=== PATIENT | female | born 1980 | race Caucasian/White ===

== ENCOUNTER 2017-03-26 09:06 | Emergency (ER) | payer SELFPAY ==
[2017-03-26 09:40] VITALS: BP 129/65
[2017-03-26 10:07] LABS: Basophils % (Auto) 0.5 % (0.0-1.8); Eosinophils % (Auto) 2.3 % (0.0-4.3); Hematocrit 37.1 % (30.3-42.9); Hemoglobin 12.4 gm/dl (10.1-14.3); Mean Corpuscular HGB Conc 34 % (30-34); Mean Corpuscular Hemoglobin 31 pg (28-32); Mean Corpuscular Volume 93 fl (79-97); Platelet Count 235 K/mm3 (140-440); Red Blood Count 3.99 M/mm3 (3.65-5.03); Red Cell Distribution Width 14.3 % (13.2-15.2); White Blood Count 7.2 K/mm3 (4.5-11.0)
[2017-03-26 10:14] LABS: Anion Gap 17 mmol/L; BUN/Creatinine Ratio 16.66; Blood Urea Nitrogen 10 mg/dL (7-17); Calcium 8.9 mg/dL (8.4-10.2); Carbon Dioxide 24 mmol/L (22-30); Chloride 103.1 mmol/L (98-107); Glucose 82 mg/dL (65-100); Potassium 3.7 mmol/L (3.6-5.0); Sodium 140 mmol/L (137-145)
[2017-03-26 10:27] LABS: Bilirubin,Urine NEG (Negative); Blood,Urine NEG (Negative); Ketones,Urine NEG (Negative); Leukocyte Esterase,Urine NEG (Negative); Mucus,Urine FEW /HPF; Nitrite,Urine NEG (Negative)
[2017-03-26] MEDS ORDERED: TYLENOL ONE (11:01)
--- NOTE | 2017-03-26 11:58 | Emergency Department Report ---
HPI - General Chief Complaint: Abdominal Pain Time Seen by Provider: 03/26/17 11:09 - [facility] HPI: Patient is a 37-year-old female presents to ED complaining of a minute area 1 month she has a complaint of lower pelvic cramping pain, intermittent type pain for the past 2 weeks. Patient also states bilateral breasts tenderness and feeling tired. Patient admits nausea but no vomiting and no appetite. He also needs frequency but no dysuria. She states last menstrual period was 2016. She denies Taking any medications or is allergic to any medications. She denies fevers/chills/vomiting/vaginal bleeding/vaginal discharge/ Vaginal itching/constipation or diarrhea/abdominal pain chest pain or shortness of breath. ED Past Medical Hx - Past Medical History Previous Medical History?: No - Surgical History Additional Surgical History: 2003 - Social History Smoking Status: Never Smoker Substance Use Type: Alcohol - Medications Home Medications: Home Medications Medication Instructions Recorded Confirmed Last Taken Type Doxylamine/Pyridoxine HCl 2 tab PO QHS #40 tablet. 03/26/17 Unknown Rx [Brett Garcia 10-10 mg Tablet] Pnv95/Ferrous Fumarate/FA 1 each PO DAILY #60 tablet 03/26/17 Unknown Rx [ Formula Tablet] ED Review of Systems ROS: Stated complaint: CRAMPS AND MISSED CYCLE Other details as noted in HPI Constitutional: denies: chills, fever Eyes: denies: eye pain, eye discharge, vision change ENT: denies: ear pain, throat pain Respiratory: denies: cough, shortness of breath, wheezing Cardiovascular: denies: chest pain, palpitations Endocrine: no symptoms reported Gastrointestinal: nausea. denies: abdominal pain, vomiting, diarrhea Genitourinary: frequency. denies: urgency, dysuria, hematuria, discharge, dyspareunia Musculoskeletal: denies: back pain, joint swelling, arthralgia Skin: denies: rash, lesions Neurological: denies: headache, weakness, numbness, paresthesias, confusion Psychiatric: denies: anxiety, depression Hematological/Lymphatic: denies: easy bleeding, easy bruising Physical Exam - Physical Exam Vital Signs: Vital Signs 03/26/17 09:36 Temperature 97.9 F Pulse Rate 79 Respiratory 15 Rate Blood Pressure 129/65 O2 Sat by Pulse 100 Oximetry Physical Exam: GENERAL: Alert and oriented x3, no apparent distress, Normal Gait, atraumatic. HEAD: Head is normocephalic and a-traumatic. EYES: Extra ocular muscles are intact. Pupils are equal, round, and reactive to light and accommodation. LUNGS: Symetrical with respiration, No wheezing, no rales or crackles, CTAB. HEART: S1, S2 present, regular rate and rhythm without murmur, no rubs, no gallops. ABDOMEN: No organomegaly was noted,Positive bowel sounds, soft, and non- distended. . Nontender to palpation on all Quadrants, NO CVA tenderness. BREAST: Symetrical, Supple bilaterally, No Masses, lumps, lesions, ulcerations. NEUROLOGIC: The patient is cooperative with no focal neurologic deficits. Cranial nerves II through XII are grossly intact. SKIN: Warm and dry, No lesions, No ulceration or induration present. ED Course Vital Signs 03/26/17 09:36 Temperature 97.9 F Pulse Rate 79 Respiratory 15 Rate Blood Pressure 129/65 O2 Sat by Pulse 100 Oximetry ED Medical Decision Making - Lab Data Result diagrams: 03/26/17 09:43 03/26/17 09:43 - Medical Decision Making 37-year-old female presents with confirmed positive test CBC, BMP was ordered. All normal limits. Urinalysis negative urine test positive hCG Quant [id number] Discussed positive test with patient discussed limits follow-up with [employer]. Discussed vitamins daily. Discussed increased water intake delete 8- 10 glasses per day. Discussed to take antinausea medications every night. Patient is alert and oriented 3 she understands instructions given Critical care attestation.: If time is entered above; I have spent that time in minutes in the direct care of this critically ill patient, excluding procedure time. ED Disposition Clinical Impression: Positive blood test Disposition: DISCHARGED TO HOME OR SELFCARE Is pt being admited?: No Does the pt Need Aspirin: No Condition: Stable Instructions: Morning Sickness (ED), (ED) Prescriptions: Doxylamine/Pyridoxine HCl [Brett Garcia 10-10 mg Tablet] 2 tab PO QHS #40 tablet. Pnv95/Ferrous Fumarate/FA [ Formula Tablet] 1 each PO DAILY #60 tablet Referrals: PRIMARY CAREMD [Primary Care Provider] - 3-5 Days SCOOBY CH MD [Referring] - 3-5 Days CANDICE DESIR MD [Referring] - 3-5 Days CAMACHO LOPEZ MD [Staff Physician] - 3-5 Days Forms: Accompanied Note, Work/School Release Form(ED) Time of Disposition: 13:04
== END 2017-03-26 13:22 | disposition home or self-care (01) ==
LOC: ED 09:06
DX: O26.899 Other specified pregnancy related conditions, unspecified trimester (principal); R10.2 Pelvic and perineal pain; N64.4 Mastodynia; R11.0 Nausea; Z3A.00 Weeks of gestation of pregnancy not specified
CPT/HCPCS: 36415; 80048; 81001; 84702; 84703; 85025; 99283

== ENCOUNTER 2017-06-16 08:17 | Emergency (ER) | payer MEDICAID ==
[2017-06-16 08:57] VITALS: BP 117/74
[2017-06-16 09:22] LABS: Basophils % (Auto) 0.3 % (0.0-1.8); Eosinophils % (Auto) 1.6 % (0.0-4.3); Hematocrit 36.4 % (30.3-42.9); Hemoglobin 12.4 gm/dl (10.1-14.3); Mean Corpuscular HGB Conc 34 % (30-34); Mean Corpuscular Hemoglobin 32 pg (28-32); Mean Corpuscular Volume 94 fl (79-97); Platelet Count 254 K/mm3 (140-440); Red Blood Count 3.89 M/mm3 (3.65-5.03); Red Cell Distribution Width 14.4 % (13.2-15.2); White Blood Count 10.4 K/mm3 (4.5-11.0)
[2017-06-16 11:15] LABS: Bacteria,Urine 1+ /HPF (Negative); Bilirubin,Urine NEG (Negative); Blood,Urine NEG (Negative); Ketones,Urine NEG (Negative); Leukocyte Esterase,Urine NEG (Negative); Mucus,Urine FEW /HPF; Nitrite,Urine NEG (Negative); Protein,Urine <15 mg/dL mg/dL (Negative)
--- NOTE | 2017-06-19 14:42 | ED Elopement Review ---
ED Pt Elopement review - Results review Lab results: Laboratory Tests 06/16/17 06/16/17 06/16/17 09:07 09:07 09:10 WBC 10.4 RBC 3.89 Hgb 12.4 Hct 36.4 MCV 94 MCH 32 MCHC 34 RDW 14.4 Plt Count 254 Lymph % (Auto) 15.9 Lipscomb % (Auto) 7.6 H Eos % (Auto) 1.6 Baso % (Auto) 0.3 Lymph # 1.7 [place]comb # 0.8 Eos # 0.2 Baso # 0.0 Seg Neutrophils % 74.6 H Seg Neutrophils # 7.8 H HCG, Quant [id number] H Urine Color Urine Turbidity Urine pH Ur Specific [place] Urine Protein Urine Glucose (UA) Urine Ketones Urine Blood Urine Nitrite Urine Bilirubin Urine Urobilinogen Ur Leukocyte Esterase Urine WBC (Auto) Urine RBC (Auto) U Epithel Cells (Auto) Urine Bacteria (Auto) Urine Mucus Blood Type O POSITIVE Antibody Screen Negative 06/16/17 10:40 WBC RBC Hgb Hct MCV MCH MCHC RDW Plt Count Lymph % (Auto) [place] % (Auto) Eos % (Auto) Baso % (Auto) Lymph # [place] # Eos # Baso # Seg Neutrophils % Seg Neutrophils # HCG, Quant Urine Color Yellow Urine Turbidity Clear Urine pH 6.0 Ur Specific [place] 1.021 Urine Protein <15 mg/dl Urine Glucose (UA) Neg Urine Ketones Neg Urine Blood Neg Urine Nitrite Neg Urine Bilirubin Neg Urine Urobilinogen 2.0 Ur Leukocyte Esterase Neg Urine WBC (Auto) 1.0 Urine RBC (Auto) 1.0 U Epithel Cells (Auto) 6.0 Urine Bacteria (Auto) 1+ Urine Mucus Few Blood Type Antibody Screen - Call Back decision Pt Call Back Decision: Call pt to return to ED ALBERT ( with abdominal pain and vaginal bleeding should be further evaluated. Consider pelvic ultrasound)
== END 2017-06-16 12:39 | disposition left against medical advice (07) ==
LOC: ED 08:17
DX: O26.892 Other specified pregnancy related conditions, second trimester (principal); R51 Headache; Z53.21 Procedure and treatment not carried out due to patient leaving prior to being seen by health care provider
CPT/HCPCS: 36415; 81001; 84702; 85025; 86850; 86900; 86901